=== PATIENT | female | born 1995 | race Native Hawaiian/Other Pacific Islander ===

== ENCOUNTER 2020-05-16 10:14 | Emergency (ER) | payer OTHER ==
[~2020-05-16] VITALS: Ht 160 cm; Wt 59.0 kg
[2020-05-16 10:14] VITALS: TEMP 98.8
[2020-05-16] MEDS ORDERED: CALNA PO (10:28)
[2020-05-16 11:36] LABS: PLATELET COUNT 186 K/uL (152-353)
[2020-05-16 11:42] LABS: POTASSIUM 3.5 mmol/L (3.6-5.2)
[2020-05-16 11:59] LABS: PARTIAL THROMBOPLASTIN TIME 26.1 SECONDS (24.5-33.6)
[2020-05-16 12:00] VITALS: BP 98/64
== END 2020-05-16 12:29 | disposition home or self-care (01) ==
LOC: ED 10:14
PROVIDERS: Hospitalist
DX: O23.32 Infections of other parts of urinary tract in pregnancy, second trimester (principal); Z3A.22 22 weeks gestation of pregnancy
CPT/HCPCS: 36415; 80048; 81000; 84702; 85027; 85610; 85730; 87077; 87086; 87088; 87186; 96360; 96365; 96375; 99284; J0696; J2270; J2405